=== PATIENT | female | born 1980 | race Caucasian/White ===

== ENCOUNTER 2017-10-29 11:52 | Outpatient (CLI) | payer OTHER ==
[2017-10-29 12:40] LABS: BHCG - Serum POSITIVE (NEGATIVE); Pregs Control Bar Appear? YES (CONTROL BAR)
== END 2017-10-29 11:53 | disposition home or self-care (01) ==
LOC: NAV LAB 11:52
DX: Z00.00 Encounter for general adult medical examination without abnormal findings (principal)
CPT/HCPCS: 84703

== ENCOUNTER 2018-01-01 08:00 | Emergency (ER) | payer BC, SELFPAY ==
[2018-01-01 08:53] LABS: Mean Corpuscular HGB CONC 32.7 g/dL (32.0-36.0); Mean Corpuscular Hemoglobin 27.7 pg (27.0-31.0); Mean Corpuscular Volume 84.8 fl (81.0-99.0); Mean Platelet Volume 9.4 fL (7.4-10.4); Platelet Count 100 thou/uL (130-400); RBC Distribution Width 12.1 % (11.5-14.5); Red Blood Cell (RBC) Count 3.98 mill/uL (4.20-5.40); White Blood Cell (WBC) Count 6.8 thou/uL (4.8-10.8)
[2018-01-01 08:57] LABS: Band 3 % (5-11); Lymphocytes 18 % (21-51); MDiff Complete? YES; Neutrophil 70 % (42-75)
[2018-01-01 08:58] LABS: Eosinophils 2 % (0-10); Monocytes 5 % (0-10); PLT Morphology Comment PLT clumps seen-ADEQ
== END 2018-01-01 10:06 | disposition home or self-care (01) ==
LOC: NAV ERS 08:00
DX: O20.0 Threatened abortion (principal); Z3A.12 12 weeks gestation of pregnancy; Z87.891 Personal history of nicotine dependence
CPT/HCPCS: 84702; 85025; 86900; 86901; 90384; 96372